=== PATIENT | female | born 1985 | race Two or more races ===

== ENCOUNTER 2016-10-11 22:23 | Emergency (ER) | payer SELFPAY ==
[~2016-10-11] VITALS: Ht 157.5 cm; Wt 59.0 kg
[2016-10-11 22:31] VITALS: BP 137/83
[2016-10-11] MEDS ORDERED: methylPREDNISolone SOD SUCC 125 MG/2 ML VL IV ONE (22:45)
[2016-10-11] MEDS ORDERED: diphenhdrAMINE HCL 50 MG/1 ML VL IV ONE (22:45)
== END 2016-10-12 01:58 | disposition left against medical advice (07) ==
LOC: EDBD 22:23 → ER 22:29
DX: T78.40XA Allergy, unspecified, initial encounter (principal); R07.0 Pain in throat
CPT/HCPCS: 96374; 96375; 99281; J1200; J2930

== ENCOUNTER 2021-10-31 17:44 | Emergency (ER) | payer OTHER ==
[~2021-10-31] VITALS: Ht 162.6 cm; Wt 78.0 kg
[2021-10-31] MEDS ORDERED: SODIUM CHLORIDE 0.9% 1,000 ML IV ONE ×2 (18:45)
[2021-10-31 18:53] LABS: Basophils # (auto) 0.1 10 ^3/uL (0-0.2); Basophils % (auto) 0.5 % (0.0-2.0); Eosinophils # (auto) 0 10 ^3/uL (0-0.8); Eosinophils % (auto) 0.4 % (0.0-7.0); Hemoglobin 13.6 g/dL (12.2-16.2); Lymphocytes # (auto) 2.6 10 ^3/uL (0.4-5.4); Lymphocytes % (auto) 22.9 % (10.0-50.0); Mean Corpuscular Hemoglobin 27.8 pg (28.0-32.0); Mean Corpuscular Hgb Conc. 32.5 g/dL (32.0-36.0); Mean Corpuscular Volume 85.5 fL (80.0-100.0); Monocytes # (auto) 0.8 10 ^3/uL (0-1.3); Monocytes % (auto) 7.1 % (0.0-12.0); Neutrophils # (auto) 7.9 10 ^3/uL (1.6-8.6); Neutrophils % (auto) 69.1 % (37.0-80.0); Red Blood Cells 4.91 10^6/uL (4.0-5.20); Red Cell Distribution Width 13.4 % (11.8-14.3); White Blood Cell 11.4 10^3/uL (4.4-10.8)
[2021-10-31 19:22] LABS: Albumin 3.9 g/dL (3.4-5.0); Calcium 8.6 mg/dL (8.5-10.1)
[2021-10-31 19:25] LABS: BUN/Creatinine Ratio 10.7; Bilirubin, Total 0.2 mg/dL (0.2-1.0); Total Protein 7.8 g/dL (6.4-8.2)
[2021-10-31] MEDS ORDERED: cefTRIAXone 1GM/50ML D5W 50 ML IV ONE (19:45)
[2021-10-31 20:03] LABS: Urine WBC None Seen /hpf (0 - 5)
[2021-10-31 20:14] LABS: Urine Bacteria NONE SEEN /hpf (None Seen); Urine Blood Negative /uL (Negative); Urine Specific Gravity 1.011 (1.001-1.035)
[2021-10-31 21:11] VITALS: BP 133/42
== END 2021-10-31 21:11 | disposition home or self-care (01) ==
LOC: EDBD 17:44 → ER 17:44
DX: E86.0 Dehydration (principal); R42 Dizziness and giddiness
CPT/HCPCS: 36415; 70450; 80053; 81001; 84484; 85025; 96361; 96365; 99285; J0696; J7030